=== PATIENT | female | born 1985 | race American Indian/Alaskan Native ===

== ENCOUNTER 2017-04-24 12:11 | Emergency (ER) | payer SELFPAY ==
[2017-04-24 12:28] VITALS: BP 117/83
[2017-04-24 12:49] LABS: Hemoglobin 11.7 gm/dl (10.1-14.3); Mean Corpuscular Volume 75 fl (79-97); Red Blood Count 4.93 M/mm3 (3.65-5.03); White Blood Count 7.8 K/mm3 (4.5-11.0)
[2017-04-24 12:50] LABS: Diff Status Complete; Eosinophils % (Auto) 2.5 % (0.0-4.3); Mean Corpuscular HGB Conc 32 % (30-34); Mean Corpuscular Hemoglobin 24 pg (28-32); Platelet Count 267 K/mm3 (140-440); Red Cell Distribution Width 14.6 % (13.2-15.2)
[2017-04-24 13:01] LABS: Anion Gap 18 mmol/L; Blood Urea Nitrogen 9 mg/dL (7-17); Calcium 8.8 mg/dL (8.4-10.2); Carbon Dioxide 21 mmol/L (22-30); Chloride 103.1 mmol/L (98-107); Glucose 95 mg/dL (65-100); Potassium 4.5 mmol/L (3.6-5.0); Sodium 138 mmol/L (137-145)
--- NOTE | 2017-04-24 13:39 | XRay Report ---
ROUTINE CHEST, TWO VIEWS: HISTORY: Shortness of breath. The trachea, heart, mediastinal contour, lung obrien and bony thorax are unremarkable. IMPRESSION: Unremarkable chest x-ray.
--- NOTE | 2017-04-26 01:36 | ED Elopement Review ---
ED Pt Elopement review - Results review Lab results: Laboratory Tests 04/24/17 04/24/17 12:32 12:32 WBC 7.8 RBC 4.93 Hgb 11.7 Hct 37.0 MCV 75 L MCH 24 L MCHC 32 RDW 14.6 Plt Count 267 Lymph % (Auto) 24.1 [place] % (Auto) 9.2 H Eos % (Auto) 2.5 Baso % (Auto) 1.0 Lymph # 1.9 [place] # 0.7 Eos # 0.2 Baso # 0.1 Add Manual Diff Complete Seg Neutrophils % 63.2 Seg Neutrophils # 4.9 Sodium 138 Potassium 4.5 Chloride 103.1 Carbon Dioxide 21 L Anion Gap 18 BUN 9 Creatinine 0.6 L Estimated GFR > 60 BUN/Creatinine Ratio 15.00 Glucose 95 Calcium 8.8 Troponin T < 0.010 - Call Back decision Pt Call Back Decision: No action required
== END 2017-04-24 22:00 | disposition left against medical advice (07) ==
LOC: ED 12:11
DX: R07.9 Chest pain, unspecified (principal); Z53.21 Procedure and treatment not carried out due to patient leaving prior to being seen by health care provider
CPT/HCPCS: 36415; 71020; 80048; 84484; 85025; 93005; 93010

== ENCOUNTER 2017-09-11 22:45 | Emergency (ER) | payer OTHER ==
--- NOTE | 2017-09-11 23:24 | Emergency Department Report ---
HPI - General Chief Complaint: Head Injury Time Seen by Provider: 09/11/17 23:17 - HPI HPI: This is a 32 year-old female presents to the emergency department home after she was doing some work on a bar at her house and was using a drill and somehow a piece of metal came loose and swung and hit her in the face and head. It caused a small laceration to the left side of the bridge of her nose and then also knocked her out for "a few minutes." The patient says that since that time she's been feeling kind of dizzy and has pain to the left side of the face and head. She denies any pain to the eye, vision change, slurred speech, nausea or vomiting. She denies any past medical history other than orthopedic ankle surgery. She took some ibuprofen for her symptoms without any relief. She is up-to-date with tetanus vaccination. ED Past Medical Hx - Past Medical History Additional medical history: Chronic back pain - Surgical History Additional Surgical History: Right ankle surgery - Social History Smoking Status: Current Every Day Smoker Substance Use Type: None - Medications Home Medications: Home Medications Medication Instructions Recorded Confirmed Last Taken Type HYDROcodone/ACETAMINOPHEN 1 each PO Q8H #15 tablet 08/12/14 Unknown Rx [Hydrocodon-Acetaminophn 10-325] Ondansetron [Zofran Odt] 4 mg PO Q4H #7 tab.rapdis 10/25/14 Unknown Rx Methocarbamol [Robaxin TAB] 750 mg PO BID PRN #20 tab 07/23/15 Unknown Rx traMADol [Ultram 50 MG tab] 50 mg PO Q4HR PRN #20 tablet 07/23/15 Unknown Rx Sulfamethoxazole/Trimethoprim 1 each PO BID #10 tablet 09/12/17 Unknown Rx [Bactrim DS TAB] ED Review of Systems ROS: Stated complaint: LACERATION ACROSS BRIDGE OF NOSE Other details as noted in HPI Comment: All other systems reviewed and negative Constitutional: denies: chills, fever Eyes: denies: eye pain, eye discharge, vision change ENT: denies: ear pain, throat pain Respiratory: denies: cough, shortness of breath, wheezing Cardiovascular: syncope. denies: chest pain, palpitations Gastrointestinal: denies: abdominal pain, nausea, diarrhea Genitourinary: denies: urgency, dysuria, discharge Musculoskeletal: denies: back pain, joint swelling, arthralgia Skin: other (laceration). denies: rash Neurological: headache, other (dizziness) Physical Exam - Physical Exam Vital Signs: Vital Signs 09/11/17 23:00 Temperature 97.6 F Pulse Rate 80 Respiratory 16 Rate Blood Pressure 108/67 O2 Sat by Pulse 100 Oximetry Physical Exam: GENERAL: The patient is well-developed well-nourished. HENT: Normocephalic. Atraumatic. Patient has moist mucous membranes. No septal hematoma. There is some swelling to the bridge of the nose and this area is also tender to palpation. There is some tenderness to palpation along the left upper cheek EYES: Extraocular motions are intact. Pupils equal reactive to light bilaterally. NECK: Supple. Trachea is midline. CHEST/LUNGS: Clear to auscultation. There is no respiratory distress noted. HEART/CARDIOVASCULAR: Regular. There is no tachycardia. There is no murmur. ABDOMEN: Abdomen is soft, nontender. Patient has normal bowel sounds. There is no abdominal distention. SKIN: Skin is warm and dry. There is a very small laceration to the left upper nasal bridge. NEURO: The patient is awake, alert, and oriented. The patient is cooperative. The patient has no focal neurologic deficits. The patient has normal speech. Cranial nerves II through XII grossly intact. MUSCULOSKELETAL: There is no tenderness or deformity. There is no limitation range of motion. There is no evidence of acute injury. ED Course Vital Signs 09/11/17 23:00 Temperature 97.6 F Pulse Rate 80 Respiratory 16 Rate Blood Pressure 108/67 O2 Sat by Pulse 100 Oximetry ED Medical Decision Making - Radiology Data Radiology results: report reviewed EXAM: CT HEAD/BRAIN WO CON HISTORY: HEAD INJURY TECHNIQUE: Standard unenhanced CT of the head at 5.0 millimeter axial increments. PRIORS: None. FINDINGS: The ventricular system is normal in size and configuration. There is no evidence for parenchymal volume loss. There is no evidence for mass lesion, mass effect, midline shift, acute intracranial hemorrhage, or acute ischemia/ infarction. No evidence for acute skull fracture is seen. No abnormality in the overlying scalp soft tissues is seen. Visualized paranasal sinuses are clear. IMPRESSION: Negative CT of the head. No acute intracranial process noted. Transcribed By: [facility] Dictated By: ANDREW BAILEY MD Electronically Authenticated By: ANDREW BAILEY MD Signed Date/Time: 09/11/171955 EXAM: CT FACIAL BONES WO CON HISTORY: HEAD INJURY TECHNIQUE: Standard unenhanced CT facial bones at 1.25 mm axial increments with coronal and sagittal reconstruction PRIORS: None. FINDINGS: There is soft tissue swelling around the nose with a small bubble of air along the left side of the nose. There is deformity of the distal right nasal bone which may be a recent fracture. The frontal, ethmoid, maxillary, and sphenoid sinuses are clear with no evidence for air-fluid levels or mucosal thickening. Nasal septum is midline. The orbits are intact. The orbital globes are normal. The visualized mastoid air cells are also clear. IMPRESSION: Soft tissue swelling over the nose. Deformity of the right nasal bone distally which may represent acute fracture Transcribed By: [facility] Dictated By: ANDREW BAILEY MD Electronically Authenticated By: ANDREW BAILEY MD Signed Date/Time: 09/11/172002 - Medical Decision Making CT of the head did not show any bleed, shift, mass or any acute process. CT of the facial bones also did not show any dislocation but there was mention of a small distal bony defect that could be an acute fracture. There has been no focal, motor or sensory deficits in her cranial nerve VII intact. It is possible patient has a mild concussion but otherwise appears stable for discharge home. The laceration was closed with some Steri-Strips and Dermabond. She was given a referral for plastic surgery in case she needed evaluation of the nasal bone. We discussed wound care. She will follow up with primary care doctor and will return to the ER for any worsening of her symptoms or any acute distress. - Differential Diagnosis fracture, dislocation, laceration, abrasion, concussion, brain bleed Critical Care Time: No Critical care attestation.: If time is entered above; I have spent that time in minutes in the direct care of this critically ill patient, excluding procedure time. ED Disposition Clinical Impression: Head trauma Qualifiers: Encounter type: initial encounter Qualified Code(s): S09.90XA - Unspecified injury of head, initial encounter Facial trauma Qualifiers: Encounter type: initial encounter Qualified Code(s): S09.93XA - Unspecified injury of face, initial encounter Nasal bone fracture Qualifiers: Encounter type: initial encounter Fracture type: closed Qualified Code(s): S02.2XXA - Fracture of nasal bones, initial encounter for closed fracture Nasal laceration Qualifiers: Encounter type: initial encounter Qualified Code(s): S01.21XA - Laceration without foreign body of nose, initial encounter Disposition: TO HOME OR SELFCARE Is pt being admited?: No Condition: Stable Instructions: Nasal Fracture (ED), Laceration (ED), Minor Head Injury (ED) Additional Instructions: Please follow up with a primary care physician in the next few days. I have given you a referral for a Dr. Okeefe, a plastic surgeon, in case she will follow up regarding your nose and possible nasal bone fracture. He can take Tylenol every 4 hours and ibuprofen every 6 hours, using weight-based dosing, as needed for discomfort. Please return to the emergency Department with any worsening of your symptoms, altered mental status, or any acute distress. Prescriptions: Sulfamethoxazole/Trimethoprim [Bactrim DS TAB] 1 each PO BID #10 tablet Referrals: PRIMARY MD JOSE [Primary Care Provider] - 3-5 Days YASMANI OKEEFE MD [Staff Physician] - 3-5 Days Forms: Work/School Release Form(ED) Time of Disposition: 00:35
--- NOTE | 2017-09-11 23:59 | Cat Scan Report ---
FINAL REPORT EXAM: CT HEAD/BRAIN WO CON HISTORY: HEAD INJURY TECHNIQUE: Standard unenhanced CT of the head at 5.0 millimeter axial increments. PRIORS: None. FINDINGS: The ventricular system is normal in size and configuration. There is no evidence for parenchymal volume loss. There is no evidence for mass lesion, mass effect, midline shift, acute intracranial hemorrhage, or acute ischemia/ infarction. No evidence for acute skull fracture is seen. No abnormality in the overlying scalp soft tissues is seen. Visualized paranasal sinuses are clear. IMPRESSION: Negative CT of the head. No acute intracranial process noted.
--- NOTE | 2017-09-12 00:07 | Cat Scan Report ---
FINAL REPORT EXAM: CT FACIAL BONES WO CON HISTORY: HEAD INJURY TECHNIQUE: Standard unenhanced CT facial bones at 1.25 mm axial increments with coronal and sagittal reconstruction PRIORS: None. FINDINGS: There is soft tissue swelling around the nose with a small bubble of air along the left side of the nose. There is deformity of the distal right nasal bone which may be a recent fracture. The frontal, ethmoid, maxillary, and sphenoid sinuses are clear with no evidence for air-fluid levels or mucosal thickening. Nasal septum is midline. The orbits are intact. The orbital globes are normal. The visualized mastoid air cells are also clear. IMPRESSION: Soft tissue swelling over the nose. Deformity of the right nasal bone distally which may represent acute fracture
[2017-09-12 01:04] VITALS: BP 103/54
== END 2017-09-12 01:03 | disposition home or self-care (01) ==
LOC: ED 22:45
DX: S01.21XA Laceration without foreign body of nose, initial encounter (principal); S02.2XXA Fracture of nasal bones, initial encounter for closed fracture; F17.200 Nicotine dependence, unspecified, uncomplicated; W22.8XXA Striking against or struck by other objects, initial encounter; Y93.89 Activity, other specified; Y92.89 Other specified places as the place of occurrence of the external cause; Y99.8 Other external cause status
CPT/HCPCS: 70450; 70486; 99283

== ENCOUNTER 2017-09-17 20:38 | Emergency (ER) | payer OTHER ==
--- NOTE | 2017-09-18 09:47 | Emergency Department Report ---
HPI - General Chief Complaint: Headache Time Seen by Provider: 09/18/17 09:26 - [facility] HPI: Duran Matheus The patient is a 32-year-old female presenting with a chief complaint of headache and syncope. The patient states 09/11/2017 he suffered an injury at work when she was struck in the face with a drill. The patient came to the hospital that day and was diagnosed with a nasal fracture and sent home. The patient states since the incident she has had intermittent headaches. Yesterday the patient states she felt lightheaded. Bright light than had a syncopal episode. Patient denies chest pain or shortness of breath. 2-3 days ago the patient states she had episodes of nausea and vomiting. Location: Head Duration: Intermittent since 09/11/2017 Quality: Headache Severity: Moderate Modifying factors: [see above] Context: [see above] Mode of transportation: Unknown ED Past Medical Hx - Past Medical History Previous Medical History?: Yes Additional medical history: Chronic back pain - Surgical History Past Surgical History?: Yes Additional Surgical History: Right ankle surgery - Family History Family history: no significant - Social History Smoking Status: Current Every Day Smoker Substance Use Type: None (denies illicit drug use) - Medications Home Medications: Home Medications Medication Instructions Recorded Confirmed Last Taken Type HYDROcodone/ACETAMINOPHEN 1 each PO Q8H #15 tablet 08/12/14 Unknown Rx [Hydrocodon-Acetaminophn 10-325] Ondansetron [Zofran Odt] 4 mg PO Q4H #7 tab.rapdis 10/25/14 Unknown Rx Methocarbamol [Robaxin TAB] 750 mg PO BID PRN #20 tab 07/23/15 Unknown Rx traMADol [Ultram 50 MG tab] 50 mg PO Q4HR PRN #20 tablet 07/23/15 Unknown Rx Sulfamethoxazole/Trimethoprim 1 each PO BID #10 tablet 09/12/17 Unknown Rx [Bactrim DS TAB] Butalb/Acetaminophen/Caffeine 2 cap PO Q8HR PRN #20 cap 09/18/17 Unknown Rx [Fioricet 50-300-40 mg CAP] Meclizine [Antivert] 25 mg PO TID PRN #20 tablet 09/18/17 Unknown Rx ED Review of Systems ROS: Stated complaint: H/A Other details as noted in HPI Respiratory: denies: shortness of breath Cardiovascular: denies: chest pain Gastrointestinal: nausea, vomiting Neurological: headache Physical Exam - Physical Exam Vital Signs: Vital Signs 09/17/17 09/18/17 20:57 02:39 Temperature 97.5 F L 97.6 F Pulse Rate 78 76 Respiratory 18 16 Rate Blood Pressure 119/52 118/77 O2 Sat by Pulse 99 100 Oximetry Physical Exam: GENERAL: The patient is well-developed well-nourished female lying on stretcher not appearing to be in acute distress. [] HEENT: Normocephalic. Steri-Strips in place to the left bridge of nose. Extraocular motions are intact. Patient has moist mucous membranes. NECK: Supple. No meningitic signs are noted. There is no adenopathy noted. CHEST/LUNGS: Clear to auscultation. There is no respiratory distress noted. HEART/CARDIOVASCULAR: Regular. There is no tachycardia. There is no gallop rub or murmur. ABDOMEN: Abdomen is soft, nontender. Patient has normal bowel sounds. There is no abdominal distention. SKIN: There is no rash. There is no edema. There is no diaphoresis. NEURO: The patient is awake, alert, and oriented. The patient is cooperative. The patient has no focal neurologic deficits. The patient has normal speech. Cranial nerves II through XII grossly intact, no drift MUSCULOSKELETAL: There is no evidence of acute injury. ED Course Vital Signs 09/17/17 09/18/17 20:57 02:39 Temperature 97.5 F L 97.6 F Pulse Rate 78 76 Respiratory 18 16 Rate Blood Pressure 119/52 118/77 O2 Sat by Pulse 99 100 Oximetry ED Medical Decision Making - Lab Data Result diagrams: 09/18/17 09:37 09/18/17 09:37 Laboratory Tests 09/18/17 09/18/17 09/18/17 09:37 09:37 09:37 WBC 8.6 RBC 4.99 Hgb 12.2 Hct 37.7 MCV 76 L MCH 24 L MCHC 32 RDW 14.6 Plt Count 316 Lymph % (Auto) 20.8 [place] % (Auto) 8.9 H Eos % (Auto) 1.4 Baso % (Auto) 0.5 Lymph # 1.8 [place] # 0.8 Eos # 0.1 Baso # 0.0 Seg Neutrophils % 68.4 Seg Neutrophils # 5.9 Sodium 139 Potassium 3.9 Chloride 99.1 Carbon Dioxide 25 Anion Gap 19 BUN 9 Creatinine 0.6 L Estimated GFR > 60 BUN/Creatinine Ratio 15 Glucose 92 Calcium 9.1 Total Creatine Kinase 154 H CK-MB (CK-2) 1.3 CK-MB (CK-2) Rel Index 0.8 Troponin T < 0.010 HCG, Qual Negative - EKG Data -: EKG Interpreted by Me EKG shows normal: sinus rhythm Rate: normal - EKG Data When compared to previous EKG there are: previous EKG unavailable Interpretation: other (no ischemic changes seen) - Radiology Data Radiology results: report reviewed (CT head), image reviewed (CT head) CT HEAD WITHOUT CONTRAST INDICATION: Headache. COMPARISON: 09/11/2017. FINDINGS: Noncontrast head CT demonstrates normal ventricles and sulci without acute or recent infarct, hemorrhage, mass effect or midline shift. No abnormal extra-axial fluid collections. Posterior fossa structures and basilar cisterns appear within normal limits. Symmetric eye globes. Clear aerated paranasal sinuses and mastoid air cells. Slight nasal septal deviation partially imaged. Intact calvarium. Normal overlying scalp soft tissues. CONCLUSION: No acute intracranial CT abnormality or significant interval change, as described. Thank you for the opportunity to participate in this patient's care. Transcribed By: [facility] Dictated By: BLANK TIWARI MD Electronically Authenticated By: BLANK TIWARI MD Signed Date/Time: 09/18/17 104 DD/ 104 TD/TT: 09/18/17 1044 - Differential Diagnosis postconcussive syndrome, cranial hemorrhage Critical care attestation.: If time is entered above; I have spent that time in minutes in the direct care of this critically ill patient, excluding procedure time. ED Disposition Clinical Impression: Postconcussive syndrome Disposition: DC-01 TO HOME OR SELFCARE Is pt being admited?: No Does the pt Need Aspirin: No Condition: Stable Instructions: Post Concussion Syndrome (ED) Additional Instructions: Return to the emergency department immediately should you develop worsening symptoms, fever, inability to tolerate food or liquid or any other concerns. Prescriptions: Butalb/Acetaminophen/Caffeine [Fioricet 50-300-40 mg CAP] 2 cap PO Q8HR PRN #20 cap PRN Reason: Headache Meclizine [Antivert] 25 mg PO TID PRN #20 tablet PRN Reason: Vertigo Referrals: PAT CARROLL MD [Primary Care Provider] - 3-5 Days CORBIN FREITAS MD [Staff Physician] - 3-5 Days (Dr. Freitas is a neurologist. Please follow up with him for further evaluation) Time of Disposition: 12:03
[2017-09-18 10:02] LABS: Basophils % (Auto) 0.5 % (0.0-1.8); Eosinophils % (Auto) 1.4 % (0.0-4.3); Hematocrit 37.7 % (30.3-42.9); Hemoglobin 12.2 gm/dl (10.1-14.3); Mean Corpuscular HGB Conc 32 % (30-34); Mean Corpuscular Volume 76 fl (79-97); Platelet Count 316 K/mm3 (140-440); Red Blood Count 4.99 M/mm3 (3.65-5.03); Red Cell Distribution Width 14.6 % (13.2-15.2); White Blood Count 8.6 K/mm3 (4.5-11.0)
[2017-09-18 10:05] LABS: Mean Corpuscular Hemoglobin 24 pg (28-32)
[2017-09-18 10:12] LABS: Creatine Kinase MB 1.3 ng/mL (0.0-4.0)
[2017-09-18 10:13] LABS: Anion Gap 19 mmol/L; BUN/Creatinine Ratio 15; Blood Urea Nitrogen 9 mg/dL (7-17); Calcium 9.1 mg/dL (8.4-10.2); Carbon Dioxide 25 mmol/L (22-30); Chloride 99.1 mmol/L (98-107); Creatine Kinase 154 units/L (30-135); Glucose 92 mg/dL (65-100); Potassium 3.9 mmol/L (3.6-5.0); Sodium 139 mmol/L (137-145)
[2017-09-18 10:21] VITALS: BP 107/73
--- NOTE | 2017-09-18 10:51 | Cat Scan Report ---
CT HEAD WITHOUT CONTRAST INDICATION: Headache. COMPARISON: 09/11/2017. FINDINGS: Noncontrast head CT demonstrates normal ventricles and sulci without acute or recent infarct, hemorrhage, mass effect or midline shift. No abnormal extra-axial fluid collections. Posterior fossa structures and basilar cisterns appear within normal limits. Symmetric eye globes. Clear aerated paranasal sinuses and mastoid air cells. Slight nasal septal deviation partially imaged. Intact calvarium. Normal overlying scalp soft tissues. CONCLUSION: No acute intracranial CT abnormality or significant interval change, as described. Thank you for the opportunity to participate in this patient's care.
== END 2017-09-18 12:13 | disposition home or self-care (01) ==
LOC: ED 20:38
DX: F07.81 Postconcussional syndrome (principal); G89.29 Other chronic pain; F17.200 Nicotine dependence, unspecified, uncomplicated
CPT/HCPCS: 36415; 70450; 80048; 82550; 82553; 84484; 84703; 85025; 93005; 93010

== ENCOUNTER 2018-12-29 23:23 | Emergency (ER) | payer OTHER ==
[2018-12-29 23:31] VITALS: BP 123/78
[2018-12-30] MEDS ORDERED: TORADOL IM ONE (03:14)
--- NOTE | 2018-12-30 03:47 | Emergency Department Report ---
ED Lower Extremity HPI - General Chief Complaint: Extremity Injury, Lower Stated Complaint: HIP PAIN ABD PAIN RIGHT LEG PAIN Time Seen by Provider: 12/30/18 01:44 Source: patient Mode of arrival: Ambulatory Limitations: No Limitations - History of Present Illness Initial Comments: Patient 33-year-old female with hx of low back pain who presents for pain radiating to right low back and right leg described burning tingling pain is exacerbated by movement and relieved by nothing tried is no numbness no tingling or paralysis also decrease in bowel or bladder function symptoms are persistent for about 1 week and no other exacerbating factors no nausea no vomiting no fever no chills she denies dysuria Complaint: hip injury Onset/Timin -: week(s) Injury: Hip: Right, Leg: Right Type of Injury: unknown Place: home Severity: moderate Severity scale (0 -10): 5 Improves With: nothing Worsens With: nothing Associated Symptoms: ambulatory - Related Data Previous Rx's Medication Instructions Recorded Last Taken Type HYDROcodone/ACETAMINOPHEN 1 each PO Q8H #15 tablet 08/12/14 Unknown Rx [Hydrocodon-Acetaminophn 10-325] Ondansetron [Zofran Odt] 4 mg PO Q4H #7 tab.rapdis 10/25/14 Unknown Rx Methocarbamol [Robaxin TAB] 750 mg PO BID PRN #20 tab 07/23/15 Unknown Rx traMADol [Ultram 50 MG tab] 50 mg PO Q4HR PRN #20 tablet 07/23/15 Unknown Rx Sulfamethoxazole/Trimethoprim 1 each PO BID #10 tablet 09/12/17 Unknown Rx [Bactrim DS TAB] Butalb/Acetaminophen/Caffeine 2 cap PO Q8HR PRN #20 cap 09/18/17 Unknown Rx [Fioricet 50-300-40 mg CAP] Meclizine [Antivert] 25 mg PO TID PRN #20 tablet 09/18/17 Unknown Rx Acetaminophen [Tylenol Extra 1,000 mg PO QID PRN #30 tablet 12/30/18 Unknown Rx Strength] Diclofenac Sodium [Voltaren] 1 gm TP QID PRN #1 tube 12/30/18 Unknown Rx Allergies Allergy/AdvReac Type Severity Reaction Status Date / Time Penicillins Allergy Swelling Verified 08/12/14 18:10 ED Review of Systems ROS: Stated complaint: HIP PAIN ABD PAIN RIGHT LEG PAIN Other details as noted in HPI Constitutional: denies: chills, fever Eyes: denies: eye pain, eye discharge, vision change ENT: denies: ear pain, throat pain Respiratory: denies: cough, shortness of breath, wheezing Cardiovascular: denies: chest pain, palpitations Endocrine: no symptoms reported Gastrointestinal: denies: abdominal pain, nausea, diarrhea Genitourinary: denies: urgency, dysuria, frequency, hematuria, discharge Musculoskeletal: back pain, myalgia Skin: denies: rash, lesions Neurological: denies: headache, weakness, paresthesias Psychiatric: denies: anxiety, depression Hematological/Lymphatic: denies: easy bleeding, easy bruising ED Past Medical Hx - Past Medical History Previous Medical History?: No Additional medical history: Chronic back pain - Surgical History Past Surgical History?: Yes Additional Surgical History: Right ankle surgery - Social History Smoking Status: Current Every Day Smoker Substance Use Type: None (denies illicit drug use) - Medications Home Medications: Home Medications Medication Instructions Recorded Confirmed Last Taken Type HYDROcodone/ACETAMINOPHEN 1 each PO Q8H #15 tablet 08/12/14 Unknown Rx [Hydrocodon-Acetaminophn 10-325] Ondansetron [Zofran Odt] 4 mg PO Q4H #7 tab.rapdis 10/25/14 Unknown Rx Methocarbamol [Robaxin TAB] 750 mg PO BID PRN #20 tab 07/23/15 Unknown Rx traMADol [Ultram 50 MG tab] 50 mg PO Q4HR PRN #20 tablet 07/23/15 Unknown Rx Sulfamethoxazole/Trimethoprim 1 each PO BID #10 tablet 09/12/17 Unknown Rx [Bactrim DS TAB] Butalb/Acetaminophen/Caffeine 2 cap PO Q8HR PRN #20 cap 09/18/17 Unknown Rx [Fioricet 50-300-40 mg CAP] Meclizine [Antivert] 25 mg PO TID PRN #20 tablet 09/18/17 Unknown Rx Acetaminophen [Tylenol Extra 1,000 mg PO QID PRN #30 tablet 12/30/18 Unknown Rx Strength] Diclofenac Sodium [Voltaren] 1 gm TP QID PRN #1 tube 12/30/18 Unknown Rx ED Physical Exam - General Limitations: No Limitations General appearance: alert, in no apparent distress - Head Head exam: Present: atraumatic, normocephalic - Eye Eye exam: Present: normal appearance, PERRL, EOMI Pupils: Present: normal accommodation - ENT ENT exam: Present: mucous membranes moist - Neck Neck exam: Present: normal inspection, full ROM. Absent: tenderness, meningis mus, lymphadenopathy, thyromegaly - Respiratory Respiratory exam: Present: normal lung sounds bilaterally. Absent: respiratory distress - Cardiovascular Cardiovascular Exam: Present: regular rate, normal rhythm, normal heart sounds. Absent: systolic murmur, diastolic murmur, rubs, gallop - GI/Abdominal GI/Abdominal exam: Present: soft, normal bowel sounds. Absent: tenderness, rebound, bruit, hernia - Rectal Rectal exam: Present: deferred - Extremities Exam Extremities exam: Present: normal capillary refill. Absent: tenderness (righth lateral hip muscle tenderness no swelling no deformity no echymosis rom intact no peritoneal signs), pedal edema, joint swelling, calf tenderness - Expanded Lower Extremity Exam Right Hip exam: Present: full ROM, tenderness (right lateral hip muscle tenderness ), pelvic stability. Absent: swelling, abrasion, laceration, ecchymosis, deformity, crepidus, dislocation, erythema, external rotation, internal rotation, shortening Upper Leg exam: Present: normal inspection, full ROM. Absent: tenderness Knee exam: Present: normal inspection, full ROM. Absent: tenderness Lower Leg exam: Present: normal inspection, full ROM. Absent: tenderness Ankle exam: Present: normal inspection, full ROM. Absent: tenderness Foot/Toe exam: Present: normal inspection, full ROM. Absent: tenderness Neuro vascular tendon exam: Absent: pulse deficit, motor deficit, sensory deficit, tendon deficit, foot drop Gait: Positive: observed and normal - Back Exam Back exam: Present: normal inspection, full ROM, muscle spasm. Absent: tenderness, CVA tenderness (R), CVA tenderness (L), paraspinal tenderness, vertebral tenderness, rash noted - Expanded Back Exam Expanded Back exam: Absent: saddle anesthesia Back exam: Positive Straight Leg Raise: Right, Negative Straight Leg Raising: Left - Neurological Exam Neurological exam: Present: alert, oriented X3, CN II-XII intact, normal gait, reflexes normal. Absent: motor sensory deficit - Psychiatric Psychiatric exam: Present: normal affect, normal mood - Skin Skin exam: Present: warm, dry, intact, normal color. Absent: rash ED Course Vital Signs 12/29/18 23:30 Temperature 98.1 F Pulse Rate 105 H Respiratory 18 Rate Blood Pressure 123/78 [Left] O2 Sat by Pulse 98 Oximetry ED Lower Extremity MDM - Lab Data Labs 12/30/18 Unknown Urine Color Yellow Urine Turbidity Slightly-cloudy Urine pH 6.0 Ur Specific [place] 1.029 Urine Protein <15 mg/dl Urine Glucose (UA) Neg Urine Ketones Neg Urine Blood Neg Urine Nitrite Neg Urine Bilirubin Neg Urine Urobilinogen 2.0 Ur Leukocyte Esterase Neg Urine WBC (Auto) 4.0 Urine RBC (Auto) 8.0 U Epithel Cells (Auto) 6.0 Amorphous Crystals Few Urine Mucus 1+ Urine HCG, Qual Negative - Radiology Data Radiology results: report reviewed, image reviewed Ordering Physician: YAS CAREY NP Date of Service: 12/30/18 Procedure(s): XR hip 2-3V RT Accession Number(s): [id number] cc: YAS CAREY NP Fluoro Time In Minutes: PROCEDURE: RIGHT HIP, 2 VIEWS TECHNIQUE: RIGHT hip radiographs, AP and lateral views. CPT 01676 HISTORY: Pain COMPARISONS: None . FINDINGS: Fracture (s) and/or Dislocation(s): None . Joint space(s): Normal . Soft tissues: Normal . Bone mineralization: Normal . Foreign bodies: None . IMPRESSION: Normal Examination . This document is electronically signed by Daniel Turpin MD., December 30 2018 04:55:38 AM ET Transcribed By: CO Dictated By: DANIEL TURPIN MD Electronically Authenticated By: DANIEL TURPIN MD Signed Date/Time: 12/30/18456 DD/ 9 TD/TT: 12/30/18419 - Medical Decision Making Hip xray normal no fracture no soft tissue abnormality, this is a hip strain , pain improved with nsaids given in ed plan continue muscle relaxants will ad analgesic balm, and nsaids, pt given referral to orthopedics as request, Critical care attestation.: If time is entered above; I have spent that time in minutes in the direct care of this critically ill patient, excluding procedure time. ED Disposition Clinical Impression: Hip strain Qualifiers: Encounter type: initial encounter Laterality: right Qualified Code(s): S76.011A - Strain of muscle, fascia and tendon of right hip, initial encounter Disposition: DC- TO HOME OR SELFCARE Is pt being admited?: No Does the pt Need Aspirin: No Condition: Stable Instructions: Muscle Strain (ED) Additional Instructions: continue current muscle relaxant Prescriptions: Acetaminophen [Tylenol Extra Strength] 1,000 mg PO QID PRN #30 tablet PRN Reason: pain Diclofenac Sodium [Voltaren] 1 gm TP QID PRN #1 tube PRN Reason: pain Referrals: MUKUND MARKS MD [Staff Physician] - 3-5 Days Forms: Work/School Release Form(ED) Time of Disposition: 05:24
[2018-12-30 03:53] LABS: Amorphous Crystals,Urine Few; Bilirubin,Urine NEG (Negative); Blood,Urine NEG (Negative); Color,Urine Yellow (Yellow); Mucus,Urine 1+ /HPF; Protein,Urine <15 mg/dL mg/dL (Negative)
[2018-12-30 03:54] LABS: HCG Qualitative,Urine Negative (Negative)
--- NOTE | 2018-12-30 04:57 | XRay Report ---
PROCEDURE: RIGHT HIP, 2 VIEWS TECHNIQUE: RIGHT hip radiographs, AP and lateral views. CPT 15736 HISTORY: Pain COMPARISONS: None . FINDINGS: Fracture (s) and/or Dislocation(s): None . Joint space(s): Normal . Soft tissues: Normal . Bone mineralization: Normal . Foreign bodies: None . IMPRESSION: Normal Examination . This document is electronically signed by Juan Hess MD., December 30 2018 04:55:38 AM ET
== END 2018-12-30 05:30 | disposition home or self-care (01) ==
LOC: ED 23:23
DX: S76.011A Strain of muscle, fascia and tendon of right hip, initial encounter (principal); M54.5 Low back pain; G89.29 Other chronic pain; F17.200 Nicotine dependence, unspecified, uncomplicated; Z88.0 Allergy status to penicillin; X58.XXXA Exposure to other specified factors, initial encounter; Y93.89 Activity, other specified; Y92.098 Other place in other non-institutional residence as the place of occurrence of the external cause; Y99.8 Other external cause status
CPT/HCPCS: 73502; 81001; 81025; 96372; 99283; J1885

== ENCOUNTER 2019-05-21 06:07 | Emergency (ER) | payer OTHER ==
[2019-05-21 06:42] VITALS: BP 111/79
--- NOTE | 2019-05-21 07:09 | XRay Report ---
CHEST 2 VIEWS INDICATION: chestpain. COMPARISON: 04/24/2017. FINDINGS: Support devices: None. Heart: Within normal limits. Lungs/Pleura: No acute air space or interstitial disease. No significant pleural effusion. IMPRESSION: No acute findings. Signer Name: Matias Ruff MD Signed: 05/21/2019 7:04 AM Workstation Name: [email or web address]
[2019-05-21] MEDS ORDERED: TYLENOL/CODEINE PO ONE (07:38)
--- NOTE | 2019-05-21 07:53 | Emergency Department Report ---
ED General Adult HPI - General Chief complaint: Chest Pain Stated complaint: CHEST/EAR PAIN Time Seen by Provider: 05/21/19 07:22 Source: patient Mode of arrival: Ambulatory Limitations: No Limitations - History of Present Illness Initial comments: This is a 33-year-old female with no prior medical history presents to the ED complaining of right sided chest wall pain that began 2 days ago. Patient states yesterday she noticed a small knot on the right intercostal right underneath her breasts. Chest x-ray shift processes and not in hurts. She clarita es any trauma looked at his chest. Patient says that she lifts a lot of heavy boxes at work. She denies fevers/chills/nausea vomiting and shortness of breath or problems breathing. - Related Data Previous Rx's Medication Instructions Recorded Last Taken Type HYDROcodone/ACETAMINOPHEN 1 each PO Q8H #15 tablet 08/12/14 Unknown Rx [Hydrocodon-Acetaminophn 10-325] Ondansetron [Zofran Odt] 4 mg PO Q4H #7 tab.rapdis 10/25/14 Unknown Rx traMADol [Ultram 50 MG tab] 50 mg PO Q4HR PRN #20 tablet 07/23/15 Unknown Rx Sulfamethoxazole/Trimethoprim 1 each PO BID #10 tablet 09/12/17 Unknown Rx [Bactrim DS TAB] Butalb/Acetaminophen/Caffeine 2 cap PO Q8HR PRN #20 cap 09/18/17 Unknown Rx [Fioricet 50-300-40 mg CAP] Meclizine [Antivert] 25 mg PO TID PRN #20 tablet 09/18/17 Unknown Rx Acetaminophen [Tylenol Extra 1,000 mg PO QID PRN #30 tablet 12/30/18 Unknown Rx Strength] Diclofenac Sodium [Voltaren] 1 gm TP QID PRN #1 tube 12/30/18 Unknown Rx Acetamin/Codeine 120-12Mg/5 ml 5 ml PO TID #50 ml 05/21/19 Unknown Rx [Tylenol/Codeine 120-12 mg/5 ml] methOCARBAMOL [Robaxin TAB] 750 mg PO BID PRN #20 tab 05/21/19 Unknown Rx Allergies Allergy/AdvReac Type Severity Reaction Status Date / Time Penicillins Allergy Swelling Verified 08/12/14 18:10 ED Review of Systems ROS: Stated complaint: CHEST/EAR PAIN Other details as noted in HPI Comment: All other systems reviewed and negative ED Past Medical Hx - Past Medical History Previous Medical History?: Yes Additional medical history: Chronic back pain - Surgical History Past Surgical History?: Yes Additional Surgical History: Right ankle surgery - Social History Smoking Status: Current Every Day Smoker Substance Use Type: None - Medications Home Medications: Home Medications Medication Instructions Recorded Confirmed Last Taken Type HYDROcodone/ACETAMINOPHEN 1 each PO Q8H #15 tablet 08/12/14 Unknown Rx [Hydrocodon-Acetaminophn 10-325] Ondansetron [Zofran Odt] 4 mg PO Q4H #7 tab.rapdis 10/25/14 Unknown Rx traMADol [Ultram 50 MG tab] 50 mg PO Q4HR PRN #20 tablet 07/23/15 Unknown Rx Sulfamethoxazole/Trimethoprim 1 each PO BID #10 tablet 09/12/17 Unknown Rx [Bactrim DS TAB] Butalb/Acetaminophen/Caffeine 2 cap PO Q8HR PRN #20 cap 09/18/17 Unknown Rx [Fioricet 50-300-40 mg CAP] Meclizine [Antivert] 25 mg PO TID PRN #20 tablet 09/18/17 Unknown Rx Acetaminophen [Tylenol Extra 1,000 mg PO QID PRN #30 tablet 12/30/18 Unknown Rx Strength] Diclofenac Sodium [Voltaren] 1 gm TP QID PRN #1 tube 12/30/18 Unknown Rx Acetamin/Codeine 120-12Mg/5 ml 5 ml PO TID #50 ml 05/21/19 Unknown Rx [Tylenol/Codeine 120-12 mg/5 ml] methOCARBAMOL [Robaxin TAB] 750 mg PO BID PRN #20 tab 05/21/19 Unknown Rx ED Physical Exam - General Limitations: No Limitations General appearance: alert, in no apparent distress - Head Head exam: Present: atraumatic, normocephalic - Eye Eye exam: Present: normal appearance - ENT ENT exam: Present: mucous membranes moist - Neck Neck exam: Present: normal inspection - Respiratory Respiratory exam: Present: normal lung sounds bilaterally, chest wall tenderness (at the middle right eighth and ninth intercostal space). Absent: respiratory distress - Cardiovascular Cardiovascular Exam: Present: regular rate, normal rhythm. Absent: systolic murmur, diastolic murmur, rubs, gallop - GI/Abdominal GI/Abdominal exam: Present: soft, normal bowel sounds - Extremities Exam Extremities exam: Present: normal inspection - Back Exam Back exam: Present: normal inspection - Neurological Exam Neurological exam: Present: alert, oriented X3 - Psychiatric Psychiatric exam: Present: normal affect, normal mood - Skin Skin exam: Present: warm, dry, intact, normal color. Absent: rash ED Course Vital Signs 05/21/19 06:39 Temperature 98.6 F Pulse Rate 80 Respiratory 14 Rate Blood Pressure 111/79 O2 Sat by Pulse 100 Oximetry ED Medical Decision Making - Radiology Data Radiology results: report reviewed, image reviewed CHEST 2 VIEWS INDICATION: chestpain. COMPARISON: 04/24/2017. FINDINGS: Support devices: None. Heart: Within normal limits. Lungs/Pleura: No acute air space or interstitial disease. No significant pleural effusion. IMPRESSION: No acute findings. Signer Name: Matias Ruff MD Signed: 05/21/2019 7:04 AM Workstation Name: [id number] Transcribed By: ES Dictated By: Matias Ruff MD Electronically Authenticated By: Matias Ruff MD Signed Date/Time: 05/21/19 0704 - Medical Decision Making 34-year-old female presents with chest wall pain. Pain medication given the patient in the ED. Chest x-ray shows no acute process, see report above. EKG normal sinus rhythm and normal Discussed the patient for the next days. Discussed application of heat to the chest to help with inflammation and pain. Past sensory normal she is in no acute distress. Discussed follow-up with the primary care physician in 3-5 days - Differential Diagnosis 1 chest wall pain, 2. costochondritis, 3 pneumonia Critical care attestation.: If time is entered above; I have spent that time in minutes in the direct care of this critically ill patient, excluding procedure time. ED Disposition Clinical Impression: Acute chest wall pain Disposition: DC-01 TO HOME OR SELFCARE Is pt being admited?: No Does the pt Need Aspirin: No Condition: Stable Instructions: Chest Pain (ED), Costochondritis (ED), Heat Pack Application (ED) Additional Instructions: Make sure to follow up with the primary care physician as discussed. Take all your medications as you've been prescribed. If you have any worsening symptoms or develop new symptoms please return to ED immediately. Prescriptions: methOCARBAMOL [Robaxin TAB] 750 mg PO BID PRN #20 tab PRN Reason: Muscle Spasm Acetamin/Codeine 120-12Mg/5 ml [Tylenol/Codeine 120-12 mg/5 ml] 5 ml PO TID #50 ml Referrals: [facility] [Outside] - 3-5 Days [facility] [Outside] - 3-5 Days Forms: Accompanied Note, Work/School Release Form(ED) Time of Disposition: 07:58
== END 2019-05-21 08:21 | disposition home or self-care (01) ==
LOC: ED 06:07
DX: R07.89 Other chest pain (principal); M54.9 Dorsalgia, unspecified; G89.29 Other chronic pain; F17.200 Nicotine dependence, unspecified, uncomplicated; Z98.890 Other specified postprocedural states; Z88.0 Allergy status to penicillin
CPT/HCPCS: 71046; 93005; 93010